=== PATIENT | male | born 1985 ===

== ENCOUNTER 2017-06-05 07:06 | Day surgery (SDC) | payer OTHER ==
[~2017-06-05] VITALS: Ht 180.3 cm; Wt 83.9 kg
[2017-06-05] VITALS (11 sets, daily range): BP systolic 108–136; BP diastolic 58–93
[~2017-06-05 07:06] MED LIST: NKM; ceFAZolin 1gm in D5W 55ml IVP ONE; celeBREX 200mg Cap **SURGERY PATIENTS ONLY ORAL ONE; oxyCONTIN 20mg tab ORAL ONE
[2017-06-05] MEDS ORDERED: fentaNYL 100 mcg/2 mL IV ONE (07:07)
[2017-06-05] MEDS ORDERED: Metoclopramide 10mg/2ml Inj ONE (07:07)
[2017-06-05] MEDS ORDERED: LR 1000ml ONE (07:07)
[2017-06-05] MEDS ORDERED: Ketorolac 30mg Inj ONE ×2 (07:07→08:21)
[2017-06-05] MEDS ORDERED: Propofol 10mg/ml 20ml IV ONE (07:07)
[2017-06-05] MEDS ORDERED: Morphine Sulfate 10mg/ml Inj ONE (07:07)
[2017-06-05] MEDS ORDERED: Midazolam 2mg/2ml Inj ONE (07:07)
[2017-06-05] MEDS ORDERED: NS Irrig 4000ml IRRIG ONE ×2 (07:07→09:15)
[2017-06-05] MEDS ORDERED: Sterile Water Irrig 1000ml IRRIG ONE (07:07)
[2017-06-05] MEDS ORDERED: Lidocaine 1% MPF 10mg/ml 5ml ONE (07:07)
--- NOTE | 2017-06-05 07:25 | Operative Note - PDOC ---
Operative Note Operative Note Pre-op Diagnosis: left knee acl tear, lateral meniscus tear Procedure: see op report Post-op Diagnosis: same as pre-op plus Operative Findings: consistent w/pre-op dx studies Anesthesia: regional Specimen: none Complications: none Condition: stable Estimated Blood Loss: none Implant(s) used?: Yes YAEL MONTANA Jun 05, 2017 07:25
--- NOTE | 2017-06-05 07:25 | Pre-Procedure Note/Attestation ---
Pre-Procedure Note/Attestation Complete Prior to Procedure Planned Procedure: left Procedure Narrative: knee acl recontruction, lateral menisectomy Indications for Procedure Pre-Operative Diagnosis: left knee acl tear, lateral meniscus tear Attestation I attest that I discussed the nature of the procedure; its benefits; risks and complications; and alternatives (and the risks and benefits of such alternatives ), prior to the procedure, with the patient (or the patient's legal sales representative wire rope). I attest that, if there was a reasonable possibility of needing a blood transfusion, the patient (or the patient's legal sales representative wire rope) was given the [facility] standardized written summary, pursuant to the Shashank Aquasco Blood Safety Act ([place] Health and Safety Code # 1645, as amended). I attest that I re-evaluated the patient just prior to the surgery and that there has been no change in the patient's H&P, except as documented below: YAEL MONTANA Jun 05, 2017 07:25
[2017-06-05] MEDS ORDERED: HYDROmorphone 1mg/ml Carpuject SUBQ PRN (07:30)
[2017-06-05] MEDS ORDERED: Tylenol #3 tab (300mg/30mg) ORAL PRN (07:30)
[2017-06-05] MEDS ORDERED: Norco 5mg/325mg tab ORAL PRN (07:30)
[2017-06-05] MEDS ORDERED: D5 1/2NS 1,000 ML IV SCH (07:30)
[2017-06-05] MEDS ORDERED: Duramorph PF 5mg/10ml amp ONE (08:20)
[2017-06-05] MEDS ORDERED: Kenalog-40 1ml Vial ONE (08:21)
[2017-06-05] MEDS ORDERED: Bupivacaine 0.25% Inj 30ml INJ ONE (08:21)
[2017-06-05] MEDS ORDERED: Bupivacaine w/Epi 0.5% 30ml Vial INJ ONE (08:22)
[2017-06-05] MEDS ORDERED: EPINEPHrine 1mg/1ml Amp ONE ×2 (08:22→10:54)
[2017-06-05] MEDS ORDERED: Lidocaine 1% 10mg/ml/Epi 0.005mg/ml 30ml vial INJ ONE (08:22)
[2017-06-05] MEDS ORDERED: Ropivacaine 5mg/ml Vial 20ml INJ ONE (08:26)
--- NOTE | 2017-06-05 10:09 | Anethesia Preoperative Eval ---
Anesthesia Pre-op PMH/ROS General Date of Evaluation: Jun 05, 2017 Time of Evaluation: 10:07 Anesthesiologist: ghazala ASA Score: ASA 1 Mallampati Score Class I : Soft palate, uvula, fauces, pillars visible Class II: Soft palate, uvula, fauces visible Class III: Soft palate, base of uvula visible Class IV: Only hard plate visible Mallampati Classification: Class II Surgeon: mateo Diagnosis: ACL tear Surgical Procedure: ACL repair Anesthesia History: none Allergies: Coded Allergies: No Known Allergies (Unverified , 06/04/17) Past Medical History Cardiovascular: Denies: CAD, HTN, [place], arrhythmia, other, valve dz Pulmonary: Denies: COPD, JAHAIRA, asthma, other Gastrointestinal/Genitourinary: Denies: CRI, ESRD, GERD, other Neurologic/Psychiatric: Denies: CVA, TIA, dementia, depression/anxiety, other Endocrine: Denies: DM, hypothyroidism, other, steroids HEENT: Denies: [place] (L), [place] (R), cataract (L), cataract (R), glaucoma, other Hematology/Immune: Denies: DVT, anemia, bleeding disorder, other Musculoskeletal/Integumentary: Denies: DDD, DJD, OA, RA, edema, other PSxH Narrative: appendectomy Anesthesia Pre-op Phys. Exam Physician Exam Last Vital Signs Date Time Temp Pulse Resp B/P Pulse Ox O2 Delivery O2 Flow Rate FiO2 06/05/17 07:40 97.5 70 18 122/82 97 Room Air Constitutional: NAD Neurologic: CN 2-12 intact Cardiovascular: RRR Respiratory: CTA Gastrointestinal: S/NT/ND Airway Exam Mallampati Score: Class II MO: full ROM: full Dentures: no lower, no upper Anesthesia Pre-op A/P Studies Pre-op Studies: EKG - sr Risk Assessment & Plan Plan: General BLOCK Status Change Before Surgery: No Pre-Antibiotics Drug: ancef Given Within 1 Hr of Incision: Yes Time Given: 09:20 TAE LE CRNA Jun 05, 2017 10:09
[2017-06-05] MEDS ORDERED: Metoclopramide 10mg/2ml Inj IVP PRN (10:15)
[2017-06-05] MEDS ORDERED: fentaNYL 100 mcg/2 mL IV PRN (10:15)
[2017-06-05] MEDS ORDERED: Meperidine 25mg/0.5ml Inj (FOR RIGORS ONLY) IV PRN (10:15)
[2017-06-05] MEDS ORDERED: Hydromorphone 0.5mg/0.5ml inj IVP PRN (10:15)
--- NOTE | 2017-06-05 10:51 | Immediate Post-Op Evaluation ---
Immediate Post-Op Evalulation Immediate Post-Op Evalulation Procedure: left knee ACL repair Date of Evaluation: Jun 05, 2017 Time of Evaluation: 10:51 IV Fluids: 500 Blood Pressure Systolic: 120 Blood Pressure Diastolic: 66 Pulse Rate: 79 Respiratory Rate: 14 O2 Sat by Pulse Oximetry: 99 Temperature (Fahrenheit): 98.8 Nausea: No Vomiting: No Complications none Patient Status: awake, reacts, patent Hydration Status: adequate Drug: ancef Given Within 1 Hr of Incision: Yes Time Given: 09:20 TAE LE CRNA Jun 05, 2017 10:51
--- NOTE | 2017-06-05 14:29 | 48 Hour Post Anesthesia Eval ---
Post Anesthesia Evaluation Procedure: left knee ACL repair Date of Evaluation: Jun 05, 2017 Time of Evaluation: 14:29 Blood Pressure Systolic: 121 0: 89 Pulse Rate: 70 Respiratory Rate: 14 O2 Sat by Pulse Oximetry: 100 Airway: patent Nausea: No Vomiting: No Hydration Status: adequate Mental Status/LOC: patient returned to baseline Post-Anesthesia Complications: none Follow-up care needed: N/A TAE LE CRNA Jun 05, 2017 14:29
--- NOTE | 2017-06-05 21:15 | Operative Note - Dictated ---
DATE OF OPERATION: 06/05/2017 PREOPERATIVE DIAGNOSES: 1. Left knee anterior cruciate ligament tear. 2. Left knee lateral meniscus tear. POSTOPERATIVE DIAGNOSES: 1. Left knee anterior cruciate ligament tear. 2. Left knee lateral meniscus tear. PROCEDURES: 1. Left knee arthroscopic anterior cruciate ligament reconstruction with tibialis anterior allograft. 2. Partial lateral meniscectomy. 3. Synovectomy of medial lateral patellofemoral compartment. SURGEON: Rolando Wright M.D. ANESTHESIA: Femoral adductor with general. INDICATION FOR THE PROCEDURE: The patient is a pleasant gentleman who has had a significant injury to his left knee, instability, and pain. He had an MRI consistent with anterior cruciate ligament tear as well as meniscal pathology. He failed conservative treatment, had significant instability and pain, which affected his activities of daily living, therefore, elected to undergo left knee anterior cruciate ligament reconstruction, tibialis anterior allograft, possible lateral meniscectomy. Risks, limitations, expectations and complications related to procedure discussed in detail. All questions addressed. DESCRIPTION OF PROCEDURE: An informed consent was obtained. The patient was brought to the operating room, placed supine, under femoral adductor general anesthesia. The patient's left leg was prepped and draped in a sterile manner. Time-out was performed. Intraarticular injection containing 0.25% Marcaine plain was injected. The portal sites were injected with 1% lidocaine with epinephrine. The tibialis anterior allograft was fashioned on the back table and tensioned, measured to size 9 mm. At this point, inferolateral stab incision was then made. Trocar was introduced into the knee joint. There is no significant patellofemoral chondral damage. Medial compartment entered. The meniscus appeared to be intact. No evidence of chondral damage. Intercondylar notch was entered. The anterior cruciate ligament was completely deficient. Lateral compartment entered. There is some tendinosis and partial tear of the posterior horn. It represents intrameniscal degeneration with possible superficial tear. A partial meniscectomy using a shaver was performed. Once that was done, the soft tissue intercondylar notch was debrided. Tibial tunnel was prepared along with the femoral tunnel. Using the [employer] toggle lock suture relay system, the tibialis anterior allograft was then passed through the intercondylar notch. The knee was then cycled and an interference screw was placed. At this point, the incisions were closed using 2-0 Vicryl suture, 3-0 Monocryl sutures, and Steri-Strips. Sterile dressing was applied. The patient was awoken and taken to recovery in stable vital signs. ESTIMATED BLOOD LOSS: Minimal. COMPLICATIONS: None. SPECIMENS: None. IMPLANT: Tibialis anterior allograft, [employer] toggle lock suture relay, and a tibial interference screw. Rolando Wright M.D. DR: MEGAN JOB#: [id number] CC: SATISH
== END 2017-06-05 12:15 | disposition home or self-care (01) ==
LOC: SUR 07:06
DX: S83.512A Sprain of anterior cruciate ligament of left knee, initial encounter (principal); S83.282A Other tear of lateral meniscus, current injury, left knee, initial encounter; V43.92XA Unspecified car occupant injured in collision with other type car in traffic accident, initial encounter; Y92.410 Unspecified street and highway as the place of occurrence of the external cause; Y99.9 Unspecified external cause status; Z90.49 Acquired absence of other specified parts of digestive tract
CPT/HCPCS: 29881; 29888; 97161; C1713; J0171; J0690; J1885; J2250; J2270; J2405; J2704; J2765; J2795; J3010; J3490; J7120; 94003; 94150; J2180

== ENCOUNTER 2017-11-06 08:49 | Day surgery (SDC) | payer OTHER ==
[~2017-11-06] VITALS: Ht 180.3 cm; Wt 83.9 kg
[2017-11-06] VITALS (10 sets, daily range): BP systolic 124–149; BP diastolic 73–92
[~2017-11-06 08:49] MED LIST changes: +ceFAZolin 1 GM premix IV ONE; -ceFAZolin 1gm in D5W 55ml IVP ONE
[2017-11-06] MEDS ORDERED: fentaNYL 100 mcg/2 mL IV ONE (08:50)
[2017-11-06] MEDS ORDERED: Neostigmine 1mg/ml 10ml Inj ONE (08:50)
[2017-11-06] MEDS ORDERED: Glycopyrrolate 0.2mg/ml 1ml Vial ONE (08:50)
[2017-11-06] MEDS ORDERED: LR 1000ml ONE (08:50)
[2017-11-06] MEDS ORDERED: Midazolam 2mg/2ml Inj ONE (08:50)
[2017-11-06] MEDS ORDERED: Propofol 200mg/20ml IV ONE ×2 (08:50→12:10)
[2017-11-06] MEDS ORDERED: Ketorolac 30mg Inj ONE (08:50)
[2017-11-06] MEDS ORDERED: Zemuron 50mg/5ml Inj IV ONE (08:50)
--- NOTE | 2017-11-06 09:13 | Operative Note - PDOC ---
Operative Note Operative Note Pre-op Diagnosis: right shoulder slap tear Procedure: right shoulder arthroscopy, chondroplasty glenoid, sad Post-op Diagnosis: same as pre-op plus Operative Findings: consistent w/pre-op dx studies Anesthesia: regional Specimen: none Complications: none Condition: stable Estimated Blood Loss: none Implant(s) used?: Yes YAEL MONTANA Nov 06, 2017 09:13
--- NOTE | 2017-11-06 09:13 | Pre-Procedure Note/Attestation ---
Pre-Procedure Note/Attestation Complete Prior to Procedure Planned Procedure: right Procedure Narrative: shoulder arthroscopy, possible slap repair Indications for Procedure Pre-Operative Diagnosis: right shoulder slap tear Attestation I attest that I discussed the nature of the procedure; its benefits; risks and complications; and alternatives (and the risks and benefits of such alternatives ), prior to the procedure, with the patient (or the patient's legal assisted sales representative). I attest that, if there was a reasonable possibility of needing a blood transfusion, the patient (or the patient's legal assisted sales representative) was given the [facility] standardized written summary, pursuant to the Shashank Anderson Blood Safety Act ([place] Health and Safety Code # 1645, as amended). I attest that I re-evaluated the patient just prior to the surgery and that there has been no change in the patient's H&P, except as documented below: YAEL MONTANA Nov 06, 2017 09:13
[2017-11-06] MEDS ORDERED: Norco 5mg/325mg tab ORAL PRN (09:15)
[2017-11-06] MEDS ORDERED: HYDROmorphone 1mg/ml Carpuject SUBQ PRN (09:15)
[2017-11-06] MEDS ORDERED: D5 1/2NS 1,000 ML IV SCH (09:15)
[2017-11-06] MEDS ORDERED: Tylenol #3 tab (300mg/30mg) ORAL PRN (09:15)
[2017-11-06] MEDS ORDERED: celeBREX 200mg Cap **SURGERY PATIENTS ONLY ORAL ONE (09:55)
[2017-11-06] MEDS ORDERED: Ropivacaine 5mg/ml Vial 30ml INJ ONE (12:11)
[2017-11-06] MEDS ORDERED: TransDerm Scop 1mg/72HR Patch TDERMAL ONE (12:44)
[2017-11-06] MEDS ORDERED: Bupivacaine 0.5% Inj 30 ml vial INJ ONE (12:50)
[2017-11-06] MEDS ORDERED: EPINEPHrine 1mg/1ml Amp ONE (13:34)
[2017-11-06] MEDS ORDERED: Lidocaine 1% Plain 30 ml INJ ONE (13:34)
[2017-11-06] MEDS ORDERED: Bupivacaine 0.25% Inj 30ml INJ ONE (13:35)
[2017-11-06] MEDS ORDERED: LR 1000ml 1,000 ML IVLG SCH (14:23)
--- NOTE | 2017-11-06 14:23 | Anethesia Preoperative Eval ---
Anesthesia Pre-op PMH/ROS General Date of Evaluation: Nov 06, 2017 Time of Evaluation: 13:05 Anesthesiologist: Nahomy ASA Score: ASA 2 Mallampati Score Class I : Soft palate, uvula, fauces, pillars visible Class II: Soft palate, uvula, fauces visible Class III: Soft palate, base of uvula visible Class IV: Only hard plate visible Mallampati Classification: Class II Surgeon: Kyle Diagnosis: R shoulder pain Surgical Procedure: R shoulder scope Anesthesia History: none Family History: no anesthesia problems Allergies: Coded Allergies: No Known Allergies (Unverified , 11/05/17) Medications: see eMAR Past Medical History Cardiovascular: Denies: HTN, CAD, [place], valve dz, arrhythmia, other Pulmonary: Denies: asthma, COPD, JAHAIRA, other Gastrointestinal/Genitourinary: Reports: GERD, Denies: CRI, ESRD, other Neurologic/Psychiatric: Denies: dementia, CVA, depression/anxiety, TIA, other Endocrine: Denies: DM, hypothyroidism, steroids, other HEENT: Denies: cataract (L), cataract (R), glaucoma, [place] (L), [place] (R), other Hematology/Immune: Denies: anemia, DVT, bleeding disorder, other Musculoskeletal/Integumentary: Denies: OA, RA, DJD, DDD, edema, other PMH Narrative: as above PSxH Narrative: ACL repair Anesthesia Pre-op Phys. Exam Physician Exam Last Vital Signs Date Time Temp Pulse Resp B/P (MAP) Pulse Ox O2 Delivery O2 Flow Rate FiO2 11/06/17 09:42 97.8 78 18 132/87 96 Room Air Constitutional: NAD Neurologic: CN 2-12 intact Cardiovascular: RRR, no M/R/G Respiratory: CTA Gastrointestinal: S/NT/ND Airway Exam Mallampati Score: Class I MO: full Neck: flexible ROM: full Teeth: intact Dentures: no upper, no lower Anesthesia Pre-op A/P Labs see chart Studies Pre-op Studies: EKG - NSR Risk Assessment & Plan Assessment: ASA 2 Plan: GA with ETT r brachial plexus block for p/op pain control Status Change Before Surgery: No Pre-Antibiotics Drug: Ancef 1 gr. Given Within 1 Hr of Incision: Yes Time Given: 14:02 MAYO JOSEPH M.D. Nov 06, 2017 14:23
[2017-11-06] MEDS ORDERED: Meperidine 50mg/ml Inj(FOR RIGORS ONLY) IV PRN ×2 (14:30)
[2017-11-06] MEDS ORDERED: Ketorolac 30mg Inj IV PRN (14:30)
[2017-11-06] MEDS ORDERED: DiphenhydrAMINE 50mg/ml Inj IVP PRN (14:30)
[2017-11-06] MEDS ORDERED: Hydromorphone 0.5mg/0.5ml inj IVP PRN (14:30)
--- NOTE | 2017-11-06 14:54 | Immediate Post-Op Evaluation ---
Immediate Post-Op Evalulation Immediate Post-Op Evalulation Procedure: R shoulder arthroscopy subacromion decompression Date of Evaluation: Nov 06, 2017 Time of Evaluation: 14:53 IV Fluids: 1300 Blood Products: none Estimated Blood Loss: min Urinary Output: none Blood Pressure Systolic: 142 Blood Pressure Diastolic: 76 Pulse Rate: 84 Respiratory Rate: 20 O2 Sat by Pulse Oximetry: 99 Temperature (Fahrenheit): 98.2 Pain Score (1-10): 2 Nausea: No Vomiting: No Complications none Patient Status: reacts, patent, extubated, none Hydration Status: adequate MAYO JOSEPH M.D. Nov 06, 2017 14:54
--- NOTE | 2017-11-06 16:02 | 48 Hour Post Anesthesia Eval ---
Post Anesthesia Evaluation Procedure: R shoulder arthroscopy subacromion decompression Date of Evaluation: Nov 06, 2017 Time of Evaluation: 16:01 Blood Pressure Systolic: 124 0: 76 Pulse Rate: 75 Respiratory Rate: 20 Temperature (Fahrenheit): 97.6 O2 Sat by Pulse Oximetry: 98 Airway: patent Nausea: No Vomiting: No Pain Intensity: 2 Hydration Status: adequate Cardiopulmonary Status: stable Mental Status/LOC: patient returned to baseline Follow-up Care/Observations: n/a Post-Anesthesia Complications: none Follow-up care needed: ready to discharge MAYO JOSEPH M.D. Nov 06, 2017 16:02
--- NOTE | 2017-11-06 21:01 | Operative Note - Dictated ---
PREOPERATIVE DIAGNOSIS: Right shoulder pain SLAP tear. POSTOPERATIVE DIAGNOSIS: 1. Right shoulder superior glenoid chondral damage. 2. Hypertrophic bursal tissue. PROCEDURES: 1. Right shoulder extensive intraarticular debridement. 2. Right shoulder subacromial decompression, bursectomy, and release of the coracoclavicular ligament. SURGEON: Rolando Wright M.D. ANESTHESIA: Interscalene with general. INDICATION FOR THE PROCEDURE: The patient is a pleasant gentleman who has had progressive shoulder pain. He failed conservative treatment, elected to undergo right shoulder arthroscopy and possible SLAP repair. Risks, limitations, expectations, and complications related to the procedure were discussed in detail. All questions were addressed. DESCRIPTION OF PROCEDURE: After informed consent was obtained, the patient was brought to the operative room. The patient was placed under general anesthesia. The patient was then carefully placed in the beach-chair position. Ancef was administered. Time-out was performed. A posterolateral skin incision was then made. Trocar was then introduced in to glenohumeral joint. Of note, there was no significant chondral damage. The anterior labrum appeared to be intact, although somewhat deficient. There was an area on the superior glenoid just where the attachment at the border of the labral chondral junction had some evidence of some chondral damage. Biceps tendon was intact. The articular side of the rotator cuff was intact. At this point, the shaver was then placed into the glenohumeral joint. Gentle chondroplasty of the chondral flap was performed. Once this was done, the camera was placed into the subacromial space. The hypertrophic bursal tissue was removed. The undersurface of the acromion was identified. Acromioplasty was started from lateral to medial, completed from posterior to anterior. Once that was done, a complete bursectomy was completed. Once that was done, the bursal side of the rotator cuff appeared to be intact. At this point, the instruments were removed. Portal sites were closed using 3-0 Monocryl sutures. Steri-Strips and a sterile dressing were applied. The patient was awoken and taken to the recovery room with stable vital signs. ESTIMATED BLOOD LOSS: Minimal. COMPLICATIONS: None. SPECIMENS: None. IMPLANTS: None. Rolando Wright M.D. DR: JENNIFER JOB#: [id number] CC:
== END 2017-11-06 14:00 | disposition home or self-care (01) ==
LOC: SDS 08:49
DX: M24.111 Other articular cartilage disorders, right shoulder (principal); K21.9 Gastro-esophageal reflux disease without esophagitis
CPT/HCPCS: 29823; 29826; J0171; J0690; J1885; J2001; J2250; J2405; J2704; J2710; J3010; J3490; J7120; 94003; 94150